=== PATIENT | male | born 1965 | race Caucasian/White ===

== ENCOUNTER 2017-11-03 13:33 | Emergency (ER) | payer OTHER ==
[~2017-11-03] VITALS: Ht 165.1 cm; Wt 61.2 kg
[2017-11-03 14:14] LABS: ABSOLUTE BASOPHILS 0.1 thou/uL (0.0-0.2); ABSOLUTE EOSINOPHILS 0.1 thou/uL (0.0-0.7); ABSOLUTE LYMPHOCYTES 1.8 thou/uL (0.8-5.3); ABSOLUTE MONOCYTES 1.1 thou/uL (0.0-1.2); ABSOLUTE NEUTROPHILS 6.2 thou/uL (1.6-8.1); EOSINOPHILS 1.1 %; HEMATOCRIT 39.7 % (42.0-52.0); HEMOGLOBIN 13.3 gm/dL (14.0-18.0); LYMPHOCYTES 19.6 %; MCH 30.9 pg (26.0-34.0); MCHC 33.5 g/dL (28.0-37.0); MCV 92.1 fL (80.0-100.0); MONOCYTES 11.9 %; MPV 8.1 fl. (7.2-11.1); NUCLEATED RBCS 0 /100WBC; PLATELET COUNT* 144 thou/uL (150-400); POLYS 66.4 %; RBC 4.31 mil/uL (4.50-6.00); RDW-CV 14.1 % (10.5-14.5); WBC 9.3 thou/uL (4.0-11.0)
[2017-11-03 14:24] LABS: CALCIUM 8.6 mg/dL (8.5-10.1); CREATININE 0.8 mg/dL (0.6-1.3); POTASSIUM 3.3 mmol/L (3.5-5.1)
[2017-11-03 14:35] LABS: ALBUMIN 3.1 g/dL (3.4-5.0); TOTAL BILIRUBIN 0.3 mg/dL (<0.1-1.0); TOTAL PROTEIN 6.7 g/dL (6.4-8.2)
[2017-11-03] MEDS ORDERED: KEFLEX500 M1 PO (14:54)
--- NOTE | 2017-11-03 15:02 | EKG ---
[place] [address] ELECTROCARDIOGRAM REPORT Name: RHYS BOB Room: [facility]#: [id number] Admission: 11/03/17 Attend Phys: Discharge: Date of : 65 Report #: [id number] THIS REPORT FOR: //name// [facility] ED Test Date: 2017-11-03 Test Time: 14:01:09 Pat Name: RHYS BOB Department: Room: Gender: Stamping [employer]: Sugey HAWKINS : 1965 Requested By: Rita Sparks Order Number: [id number] MD: Johny Reardon Measurements Intervals [place] Rate: 95 P: 41 UT: 142 QRS: 71 QRSD: 84 T: 56 QT: 345 QTc: 434 Interpretive Statements Sinus rhythm Baseline wander in lead(s) V5,V6 No previous ECG available for comparison Electronically Signed On 11-03-2017 15:01:46 CDT by Johny Reardon [email or web address] <ELECTRONICALLY SIGNED> By: Johny Reardon MD, [facility] 11/03/17 1501 1401 1401 Johny Reardon MD, FACC /EPI
[2017-11-03 15:16] VITALS: BP 115/70
== END 2017-11-03 15:16 | disposition home or self-care (01) ==
LOC: M.ERS 13:33
PROVIDERS: Nurse Practitioner Family
DX: R60.9 Edema, unspecified (principal); F17.200 Nicotine dependence, unspecified, uncomplicated